=== PATIENT | male | born 1995 | race Caucasian/White ===

== ENCOUNTER 2017-05-22 19:27 | Emergency (ER) | payer OTHER ==
[2017-05-22 19:31] VITALS: RESP 16
--- NOTE | 2017-05-22 19:59 | EDPHY ---
H & P Stated Complaint: blister on left foot Time Seen by Provider: 05/22/17 19:59 Source: Patient Exam Limitations: No limitations - Personal History Current Tetanus/Diphtheria Vaccine: No Current Tetanus Diphtheria and Acellular Pertussis (TDAP): No - Medical/Surgical History Hx Asthma: No Hx Chronic Respiratory Disease: No Hx Diabetes: No Hx Cardiac Disease: No Hx Renal Disease: No Hx Cirrhosis: No Hx Alcoholism: No Hx HIV/AIDS: No Hx Splenectomy or Spleen Trauma: No Other PMH: denies - Social History Smoking Status: Never smoked Constitutional: Initial Vital Signs Temperature (C) 36.6 C 05/22/17 19:29 Heart Rate 104 H 05/22/17 19:29 Respiratory Rate 16 05/22/17 19:29 Blood Pressure 119/73 05/22/17 19:29 O2 Sat (%) 95 05/22/17 19:29 O2 Delivery Mode Room Air Allergies/Adverse Reactions: No Known Allergies Allergy (Verified 05/22/17 19:31) Home Medications: Medication Instructions Recorded NK [No Known Home Meds] 05/22/17 Medical Decision Making Procedures: Procedure: Plantar wart removal The patient's plantar wart was located on the plantar aspect of left foot. The area was prepped and local anesthesia provided in the usual fashion. I obtained verbal consent from the patient to remove the plantar wart who was informed about the possibility of bleeding and pain. The plantar wart was removed using a scalpel. No drainage was expressed. Scant amount of bleeding noted that resolved with direct pressure. Antibiotic ointment placed and along with clean sterile dressing. The patient tolerated the procedure well. The procedure was performed by myself. ED Course/Re-evaluation: Plantar wart removal. Topical antibiotic ointment and clean sterile dressing applied. Differential Diagnosis: Differential diagnosis includes but is not limited to plantar wart. Departure - Departure Disposition: Home, Routine, Self-Care Clinical Impression: Plantar wart, left foot Condition: Good Instructions: Plantar Wart (ED) Additional Instructions: Keep dressing in place times 48 hours and then you may remove. Please follow-up with Podiatry. Referrals: Dwayne Villarreal DPM [Doctor of Podiatric Medicine] - As per Instructions
[2017-05-22 20:28] VITALS: BP 123/73; PULSE 76; TEMP 98.1; O2SAT 97
== END 2017-05-22 20:26 | disposition home or self-care (01) ==
PROC: 0H5NXZZ Destruction of Left Foot Skin, External Approach (ICD-10-PCS; principal; 2017-05-22)
DX: B07.0 Plantar wart (principal)